=== PATIENT | female | born 1960 | race Caucasian/White ===

== ENCOUNTER → 2021-02-13 15:27 | Outpatient (CLI) | payer BC, SELFPAY ==
--- NOTE | 2021-02-13 15:37 | MRI_ITS ---
STUDY: MRI BRAIN WITH AND WITHOUT CONTRAST (ATTENTION INTERNAL AUDITORY CANALS - I.A.C.''s) REASON FOR EXAM: Female, 60 years old. LEFT EAR SUDDEN HEARING LOSS TECHNIQUE: Standardized multiplanar fat and water weighted pulse sequences were obtained. 13ml IV Dotarem was administered for the contrast portion of the examination. COMPARISON: None. FINDINGS: Normal bilateral temporal bones. Normal bilateral internal auditory canals. There is no demonstrated intracanalicular or cisternal vestibular schwannoma (acoustic neuroma). There is no enhancement of the bilateral VIIth or VIIIth cranial nerves. Normal bilateral cochlea, vestibules and semicircular canals. Normal size of the ventricles and extra-axial spaces for the patient''s age. There are a limited number of small white matter hyperintensities, distributed throughout the deep white matter tracts of the cerebral hemispheres, consistent with mild chronic white matter ischemic changes. Normal bilateral basal ganglia. Normal thalami. Normal flow voids within the major intracranial circulation suggesting patency by spin echo criteria. Normal venous enhancement. There is no enhancing intra-axial or extra-axial abnormality. There is no extra-axial fluid accumulation. Normal sella turcica, pituitary gland, infundibular stalk, optic chiasm and hypothalamus. Normal tectal plate and pineal gland. Normal midbrain, arin and medulla. Normal cerebellum. MRI/Brain W/WO Contrast IMPRESSION: There is no demonstrated vestibular schwannoma (acoustic neuroma). Electronically Signed: Ju Cordero MD at 15:13 EDT Tel , Service support ,
[2021-02-13 15:56] LABS: CREATININE FINGERSTICK 0.9 mg/dL (0.55-1.02); EGFR FINGERSTICK > 60.0000 mL/min (>60)
== END ==
PROVIDERS: PCP Family Medicine; Referring Provider Otolaryngology Otolaryngology/Facial Plastic Surgery; Visit Provider Otolaryngology Otolaryngology/Facial Plastic Surgery
DX: H91.23 Sudden idiopathic hearing loss, bilateral (principal)
CPT/HCPCS: 70553; A9575

== ENCOUNTER → 2022-01-10 | Outpatient (CLI) | payer BC, SELFPAY | END | disposition home or self-care (01) | PROVIDERS: PCP Family Medicine; Visit Provider Family Medicine | DX: L03.818 Cellulitis of other sites (principal) | CPT/HCPCS: 87070; 87077; 87186; 87205 ==

== ENCOUNTER → 2023-01-03 | Outpatient (CLI) | payer OTHER, SELFPAY ==
--- NOTE | 2023-01-03 15:50 | BD_ITS ---
STUDY: DUAL ENERGY X-RAY ABSORPTIOMETRY / DXA REASON FOR EXAM: Female, 62 years old. V76.12ScreeningBONE DENSITY REASON FOR EXAM TECHNIQUE: Bone Mineral Density (BMD) measurements of lumbar spine and right hip were obtained. COMPARISON: None. FINDINGS: Lumbar Spine (L1-L4): g/cm2 (0.671) / T-score (-3.4) / Z-score (-1.8) Findings are suggestive of osteoporosis with a high fracture risk. Right Femur Total: g/cm2 (0.613) / T-score (-2.7) / Z-score (-1.6) Right Femoral Neck: g/cm2 (0.538) / T-score (-2.8) / Z-score (-1.4) BD/Dexa Bone Density Study IMPRESSION: The patient is considered osteoporotic as outlined below according to World Noe Organization (WHO) criteria with a high fracture risk. Reference Information: The T-score is the number of standard deviations above or below the standard which is normal for young adults at their peak bone mineral density. The World Health Organization (WHO) interprets the T-scores as follows: Above -1 Normal bone density Between -1 and -2.5 Osteopenia Equal to / or below -2.5 Osteoporosis As a practical clinical guideline, osteopenia may be graded as follows: Mild -1 through -1.5 Moderate -1.6 through -2.0 Severe -2.1 through -2.4 The Z-score is the number of standard deviations above or below age-matched controls. A Z-score of less than -1.5 would be considered abnormal. References: 1. NIH Osteoporosis and Related Bone Diseases www osteo.org 2. International Society for Clinical Densitometry www iscd.org 3. National Osteoporosis Foundation www nof.org Electronically Signed: Karl Stevens MD at 13:09 EDT ,
== END | disposition home or self-care (01) ==
PROVIDERS: PCP Family Medicine; Referring Provider Orthopaedic Surgery; Visit Provider Orthopaedic Surgery
DX: M48.48XA Fatigue fracture of vertebra, sacral and sacrococcygeal region, initial encounter for fracture (principal); S32.511A Fracture of superior rim of right pubis, initial encounter for closed fracture; M51.36 Other intervertebral disc degeneration, lumbar region
CPT/HCPCS: 77080

== ENCOUNTER → 2023-01-08 | Outpatient (CLI) | payer OTHER, SELFPAY ==
--- NOTE | 2023-01-08 08:59 | NM_ITS ---
CLINICAL: 62-year-old female with history of sacral fatigue fracture. LIMITED 99m Tc MDP THREE PHASE BONE SCINTIGRAPHY COMPARISON: None available FINDINGS: Following the intravenous administration of 25.4 mCi of 99m Tc MDP, three-phase bone acquisitions of the pelvis reveal: 1. The flow and immediate static blood pool acquisitions demonstrate arterial and venous phase hyperemia manifest in the region of the bilateral sacroiliac joints and pubic symphysis. 2. Delayed images depict persistent increased uptake in the bilateral sacroiliac joints, right worse than left and pubic symphysis to the right of the midline. 3. The remaining limited skeletal structures are scintigraphically unremarkable. NM/Bone Scan Three Phase IMPRESSION: 1. The increase in radiopharmaceutical concentration defined in the right and left sacroiliac joints and right inferior pubic ramus is most consistent with trauma-fracture secondary to the intensive uptake. Plain film radiography may be of benefit. 2. No other scintigraphic abnormalities are defined. Electronically Signed: Blake Azar, at 23:22 EDT ,
== END | disposition home or self-care (01) ==
LOC: NM 08:57
PROVIDERS: PCP Family Medicine; Referring Provider Orthopaedic Surgery; Visit Provider Orthopaedic Surgery
DX: M48.48XA Fatigue fracture of vertebra, sacral and sacrococcygeal region, initial encounter for fracture (principal); S32.511A Fracture of superior rim of right pubis, initial encounter for closed fracture; M51.36 Other intervertebral disc degeneration, lumbar region; X58.XXXA Exposure to other specified factors, initial encounter
CPT/HCPCS: 78315; A9503

== ENCOUNTER → 2023-04-05 | Outpatient (CLI) | payer OTHER, SELFPAY ==
[2023-04-05 15:41] LABS: Absolute Lymphocyte Count 3.56 X10^3/uL (0.83-4.51); Absolute Neutrophil Count 4.3 X10^3/uL (2.0-7.7); Basophil# 0.05 X10^3/uL; Basophil% 0.6 % (0-1); Eosinophil# 0.25 X10^3/uL; Eosinophils% 2.8 % (0-5); Hematocrit 40.4 % (37-47); Hemoglobin 13.8 g/dL (12.0-15.0); Lymphocyte # 3.56 X10^3/ul (0.83-4.51); Lymphocyte % 39.3 % (19-41); Mean Corp Hgb Conc 34.2 g/dL (32-36); Mean Corpuscular Hgb 33.1 pg (27.0-32.0); Mean Corpuscular Volume 96.9 fL (81-99); Mean Platelet Vol. 9.5 fl (6.2-12.0); Monocyte# 0.81 X10^3/uL; Monocyte% 8.9 % (0-10); NRBC Flagged by Analyzer 0 % (0-5); Neutrophil # 4.34 X10^3/uL (2.7-7.7); Neutrophil % 47.8 % (47-70); Platelet Count 310 K/mm3 (150-450); RBC Distribution Width CV 11.3 % (11.6-14.6); RBC Distribution Width SD 40.5 fl (35.1-43.9); Red Blood Count 4.17 M/mm3 (4.2-5.4); White Blood Count 9.1 K/mm3 (4.4-11.0)
[2023-04-05 16:14] LABS: Erythrocyte Sedimentation Rate 4 mm/hr (0-30)
[2023-04-05 16:18] LABS: CRP < 2.90 mg/L (0.0-3.0); Rheumatoid Factor < 10.0 IU/mL (<15)
[2023-04-08 12:08] LABS: ANTINUCLEAR ANTIBODIES DIRECT Negative (Negative)
== END | disposition home or self-care (01) ==
LOC: LAB 15:07
PROVIDERS: PCP Family Medicine; Referring Provider Orthopaedic Surgery; Visit Provider Family Medicine
DX: M48.48XA Fatigue fracture of vertebra, sacral and sacrococcygeal region, initial encounter for fracture (principal); X58.XXXA Exposure to other specified factors, initial encounter
CPT/HCPCS: 36415; 84550; 85025; 85652; 86038; 86140; 86431

== ENCOUNTER 2023-05-13 16:28 | Emergency (ER) | payer SELFPAY ==
[2023-05-13 16:30] VITALS: BP 171/108; PULSE 96; RESP 15; TEMP 36.8; O2SAT 100; BMI 20.7
--- NOTE | 2023-05-13 17:49 | EDS_ITS ---
HPI <JUANI Johnson - Last Filed: 05/13/23 20:56> History of Present Illness Chief Complaint: Upper Extremity Injury Narrative Narrative: 62-year-old female presents with a right index finger infection. She states about 9 days ago the distal joint area got swollen. She thought it was arthritis but it worsened and she saw her PCP on 05/06 who performed I&D and prescribed Bactrim. She was seen again few days later and had another I&D. She states she didn't really look at the drainage but thinks it was pus. Today when her primary care reevaluated in the office she sent her here for evaluation. Patient denies fever or chills. She is not diabetic or immunocompromised. PFSH <JUANI Johnson - Last Filed: 05/13/23 20:56> [facility] Home Medications ciprofloxacin HCl 500 mg tablet (Cipro) 500 mg PO BID 1 day #2 tabs 05/13/23 [Rx Last Taken Unknown] sulfamethoxazole 800 mg-trimethoprim 160 mg tablet (Bactrim DS) 1 tab PO BID 1 day #2 tabs 05/13/23 [Rx Last Taken Unknown] Allergy/AdvReac Type Severity Reaction Status Date / Time pregabalin Allergy Severe Other Verified 05/13/23 16:30 amoxicillin Allergy Mild Diarrhea Verified 05/13/23 16:30 clavulanic acid Allergy Mild Diarrhea Verified 05/13/23 16:30 [From Augmentin] Social History Smoking Status: Never smoker ROS <JUANI oJhnson - Last Filed: 05/13/23 20:56> ROS ED ROS Narrative Constitutional: Negative for fever, chills, malaise. Neuro: Negative for motor/sensory dysfunction. Skin: Positive for wound. Musc: Negative for joint pain, trauma. EXAM <JUANI Johnson - Last Filed: 05/13/23 20:56> Physical Exam Narrative Exam Narrative: CONST: Patient sitting in no acute distress. EYES: Normal inspection. NECK: Normal inspection. RESP: No respiratory distress, CTAB. CVS: Regular rate and rhythm, no murmur, no gallop. SKIN: Color normal, no rash, warm, dry, intact. EXTREMITIES: Right index finger is swollen and dusky from the PIP joint extending distally. It is held in normal position and not flexed. She has no pain with extension and no fusiform digit. There is a 1 cm length wound along the ulnar aspect of the DIP joint. She cannot move the DIP joint but has full range of motion of the MCP and DIP. There is no drainage or crepitus of the wound. Sensation and capillary refill are intact. NEURO: Oriented x4. PSYCH: Normal affect. Const Vital Signs: 05/13/23 16:30 Temperature 98.2 F Temperature Source Temporal Pulse Rate 96 Respiratory Rate 15 Blood Pressure 171/108 H Blood Pressure Mean 129 Pulse Ox 100 Oxygen Delivery Method Room Air MDM <JUANI Johnson - Last Filed: 05/13/23 20:56> [facility] MDM Narrative Medical decision making narrative: Patient had redness and swelling of the right index finger and was I&D twice in her primary care's office. She is taking Bactrim but it is not improving. She has a wound where she had incision on the DIP joint and cannot bend the DIP joint. She has full range of motion of all other joints and is neurovascularly intact. She has no signs clinically of an abscess or flexor tenosynovitis. Labs show normal white count and normal inflammatory markers and x-ray shows no acute findings. Sodium is 122 but she is not symptomatic so this can be followed up outpatient. She has been 127-1 0s in the past. The on-call [facility] telemetry hand specialist, Dr. Phoebe Son, reviewed patient's workup and imaging. She recommended adding Cipro with Bactrim and patient was given a dose here. They will call her in the morning to see her in the hand clinic tomorrow. Patient comfortable with this plan and discharged in stable condition. Differential: Herpetic mary, abscess, flexor tenosynovitis, osteomyelitis <Dr. Sami Rodrigues MD - Last Filed: 05/13/23 18:39> [facility] Treatment and Re-Evaluation Narrative: I have personally performed a face to face assessment of the patient and have reviewed the PEPPER Note. I performed a substantive portion of the visit including all aspects of the following. My reyes findings include: History: Patient complains of right finger swelling. She states last Saturday it started just being sore. Saturday it was swollen and red with pus under the skin. This has been drained in her family physician's office twice. She has been on Bactrim twice a day. Cultures have grown out MSSA. Patient does not feel sick. She can still bend and move the finger. No fevers or chills. No history of diabetes. She is not on any immunosuppressant drugs. Exam: Patient does have erythema little swelling and some open areas on that distal two thirds of the right index finger. No Knavel's signs. I did look at an image the patient took of the original lesion on last Saturday. It had erythema with what almost look like coalesced into blisters. It is possible this is mary although it is more on the side of the finger than on the tip. 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 Medical Decision Making: We will do blood work as well as x-rays. With her having this incised twice, already being on antibiotics, we will obtain hand consult. Discharge Plan Triage Chief Complaint: Upper Extremity Injury ED Midlevel Provider: Wendy Davila ED Provider: Sami Rodrigues Dx/Rx/DC Orders Clinical Impression: Open wound of right index finger Prescriptions: New ciprofloxacin HCl [Cipro] 500 mg tablet 500 mg PO BID 1 Days Qty: 2 0RF sulfamethoxazole-trimethoprim [Bactrim DS] 800-160 mg tablet 1 tab PO BID 1 Days Qty: 2 0RF Primary Care Provider: Phoebe Peña Referrals: Phoebe Peña MD [Primary Care Provider] - Activity Restrictions/Additional Instructions: The [facility] hand clinic will call you tomorrow morning to schedule you an appointment to be seen tomorrow. I am having you continue Bactrim and adding a second antibiotic called Cipro. Disposition Disposition: Home, Self Care Discharge Date/Time: 05/13/23 19:53
--- NOTE | 2023-05-13 18:03 | RAD_ITS ---
STUDY: X-RAY - RIGHT HAND, ATTENTION SECOND FINGER REASON FOR EXAM: Female, 62 years old. Right index finger wound TECHNIQUE: 3 view(s) of the finger were obtained. COMPARISON: None. FINDINGS: Normal metacarpal head. Normal metacarpophalangeal joint. Normal proximal phalanx. Normal middle phalanx. Normal distal phalanx. There is mild degenerative arthrosis of the proximal interphalangeal joint. There is moderate degenerative arthrosis of the distal interphalangeal joint. There is no demonstrated fracture. There is soft tissue swelling. RAD/Finger(s) Min 2 Views IMPRESSION: Degenerative change. Soft tissue swelling. Electronically Signed: Reginald Benjamin MD at 18:47 EST ,
[2023-05-13 18:08] LABS: Absolute Neutrophil Count 7.6 X10^3/uL (2.0-7.7); Basophil# 0.02 X10^3/uL; Basophil% 0.2 % (0-1); Eosinophil# 0.06 X10^3/uL; Eosinophils% 0.6 % (0-5); Hematocrit 39.4 % (37-47); Hemoglobin 13.8 g/dL (12.0-15.0); Lymphocyte % 14.1 % (19-41); Mean Corpuscular Hgb 33.2 pg (27.0-32.0); Mean Corpuscular Volume 94.7 fL (81-99); Mean Platelet Vol. 8.9 fl (6.2-12.0); Monocyte# 0.71 X10^3/uL; Monocyte% 7.2 % (0-10); NRBC Flagged by Analyzer 0 % (0-5); Neutrophil # 7.62 X10^3/uL (2.7-7.7); Neutrophil % 76.8 % (47-70); Platelet Count 277 K/mm3 (150-450); RBC Distribution Width CV 12.1 % (11.6-14.6); RBC Distribution Width SD 42.2 fl (35.1-43.9); Red Blood Count 4.16 M/mm3 (4.2-5.4); White Blood Count 9.9 K/mm3 (4.4-11.0)
[2023-05-13 18:20] LABS: Erythrocyte Sedimentation Rate 12 mm/hr (0-30)
[2023-05-13 18:34] LABS: Anion Gap 6 (5-15); BUN 23 mg/dL (7-18); BUN/Creat Ratio 23.2 RATIO (10-20); CRP < 2.90 mg/L (0.0-3.0); Calcium,Total 10.2 mg/dL (8.5-10.1); Chloride 90 mmol/L (98-107); Creatinine, Serum 0.99 mg/dL (0.55-1.02); EST Glomerular Filtration Rate 60 mL/min (>60); Est Glom Filt Rate - Afr Amer 73 mL/min (>60); Estimated Creatinine Clearance 52.06 ml/min; Glucose 133 mg/dL (74-106); Potassium 4.6 mmol/L (3.5-5.1); Sodium Level 122 mmol/L (136-145)
[2023-05-13] MEDS: Smz/Tmp Ds Tablet 1 TABLET PO (19:52)
[2023-05-13] MEDS: Ciprofloxacin 500 MG Tablet PO (19:52)
== END 2023-05-13 19:53 | disposition home or self-care (01) ==
PROVIDERS: Physician Assistant; Emergency Provider Emergency Medicine; PCP Family Medicine; Visit Provider Emergency Medicine
DX: S61.200A Unspecified open wound of right index finger without damage to nail, initial encounter (principal); L08.9 Local infection of the skin and subcutaneous tissue, unspecified; A49.01 Methicillin susceptible Staphylococcus aureus infection, unspecified site; X58.XXXA Exposure to other specified factors, initial encounter
CPT/HCPCS: 73140; 80048; 85025; 85652; 86140; 99284